=== PATIENT | female | born 1995 | race African-American/Black ===

== ENCOUNTER 2018-09-17 13:46 | Emergency (ER) | payer OTHER ==
[~2018-09-17] VITALS: Ht 157.5 cm; Wt 68.2 kg
[~2018-09-17 13:46] MED LIST: PREN-27 PO
[2018-09-17] MEDS ORDERED: HYDROCODONE/ACETAMINOPHEN 5-325 MG TABLET PO ONE (15:30)
[2018-09-17] MEDS ORDERED: IBUPROFEN 600 MG TABLET PO ONE (15:30)
[2018-09-17 16:29] VITALS: BP 125/62
== END 2018-09-17 17:24 | disposition home or self-care (01) ==
LOC: EMS 13:47
DX: S60.031A Contusion of right middle finger without damage to nail, initial encounter (principal); S60.021A Contusion of right index finger without damage to nail, initial encounter; W19.XXXA Unspecified fall, initial encounter; Y93.89 Activity, other specified; Y92.89 Other specified places as the place of occurrence of the external cause; Y99.8 Other external cause status

== ENCOUNTER 2019-06-04 17:05 | Emergency (ER) | payer OTHER ==
[~2019-06-04] VITALS: Ht 149.9 cm; Wt 68.2 kg
[2019-06-04] MEDS ORDERED: HALO2 PO (18:44)
[2019-06-04] MEDS ORDERED: OLAN2.5T3 PO (18:44)
[2019-06-04] MEDS ORDERED: PERTUSS(ACELL),DIPH,TET VAC/PF 0.5 ML VIAL IM ONE (19:00)
[2019-06-04] MEDS: KETOROLAC TROMETHAMINE 60 MG/2 ML VIAL IM ONE ×2 (19:09→19:14)
[2019-06-04 19:30] VITALS: BP 122/80
[2019-06-04] MEDS ORDERED: IBUPROFEN 800 MG TABLET PO ONE (19:30)
== END 2019-06-04 20:30 | disposition home or self-care (01) ==
LOC: EMS 17:08
DX: S30.810A Abrasion of lower back and pelvis, initial encounter (principal); M25.511 Pain in right shoulder; F41.9 Anxiety disorder, unspecified; F32.9 Major depressive disorder, single episode, unspecified; J45.909 Unspecified asthma, uncomplicated; Y04.2XXA Assault by strike against or bumped into by another person, initial encounter; Y93.89 Activity, other specified; Y92.89 Other specified places as the place of occurrence of the external cause; Y99.8 Other external cause status
CPT/HCPCS: 29105; 73030; 81025; 90471; 90715; 99283; J1885

== ENCOUNTER 2024-10-22 03:56 | Emergency (ER) | payer OTHER ==
[~2024-10-22] VITALS: Ht 149.9 cm; Wt 71.4 kg
[2024-10-22 04:00] VITALS: BP 125/62; PULSE 85; RESP 20; TEMP 98.7; O2SAT 100
[2024-10-22] MEDS ORDERED: IBUP-1554 PO (04:57)
[2024-10-22] MEDS ORDERED: ACET-66 PO (04:57)
[2024-10-22] MEDS ORDERED: GUAIFDM PO (04:57)
== END 2024-10-22 05:44 | disposition home or self-care (01) ==
LOC: EMS 03:56
DX: J06.9 Acute upper respiratory infection, unspecified (principal); J20.9 Acute bronchitis, unspecified; B97.89 Other viral agents as the cause of diseases classified elsewhere; J45.909 Unspecified asthma, uncomplicated; Z91.030 Bee allergy status; Z59.00 Homelessness unspecified
CPT/HCPCS: 71045; 99283